=== PATIENT | male | born 1970 | race Caucasian/White ===

== ENCOUNTER 2021-06-09 17:00 | Emergency (ER) | payer OTHER ==
[~2021-06-09] VITALS: Ht 182.9 cm; Wt 77.1 kg
[2021-06-09] MEDS ORDERED: LIPITOR20 MG PO (17:07)
== END 2021-06-09 20:11 | disposition home or self-care (01) ==
LOC: ER 17:00
DX: R07.9 Chest pain, unspecified (principal); M94.0 Chondrocostal junction syndrome [Tietze]